=== PATIENT | female | born 1940 | race Caucasian/White ===

== ENCOUNTER → 2016-11-13 | Outpatient (CLI) | payer OTHER | LOC: FIMAGING 06:45 | PROVIDERS: ATTEND Orthopaedic Surgery | DX: S43.401A Unspecified sprain of right shoulder joint, initial encounter (principal); M75.81 Other shoulder lesions, right shoulder; M19.011 Primary osteoarthritis, right shoulder ==

== ENCOUNTER → 2017-01-16 | Outpatient (CLI) | payer OTHER | LOC: FIMAGING 09:41 | PROVIDERS: ATTEND Obstetrics & Gynecology Gynecology | DX: Z12.31 Encounter for screening mammogram for malignant neoplasm of breast (principal) | CPT/HCPCS: G0202 ==

== ENCOUNTER → 2017-05-27 | Outpatient (CLI) | payer OTHER | LOC: FIMAGING 09:55 | PROVIDERS: ATTEND Family Medicine | DX: M54.16 Radiculopathy, lumbar region (principal); M48.56XA Collapsed vertebra, not elsewhere classified, lumbar region, initial encounter for fracture; M48.061 Spinal stenosis, lumbar region without neurogenic claudication; M48.07 Spinal stenosis, lumbosacral region; R93.422 Abnormal radiologic findings on diagnostic imaging of left kidney ==

== ENCOUNTER → 2017-05-30 | Outpatient (CLI) | payer OTHER | LOC: FIMAGING 11:10 | PROVIDERS: ATTEND Family Medicine | DX: K76.0 Fatty (change of) liver, not elsewhere classified (principal); K76.89 Other specified diseases of liver; N28.1 Cyst of kidney, acquired; K86.89 Other specified diseases of pancreas ==

== ENCOUNTER → 2017-05-31 | Outpatient (CLI) | payer OTHER | LOC: FIMAGING 10:52 | PROVIDERS: ATTEND Family Medicine | DX: M25.562 Pain in left knee (principal); M23.262 Derangement of other lateral meniscus due to old tear or injury, left knee; M22.42 Chondromalacia patellae, left knee; M25.462 Effusion, left knee ==

== ENCOUNTER 2018-05-26 17:56 | Emergency (ER) | payer OTHER ==
[2018-05-26 18:05] VITALS: BP 207/106
[2018-05-26] MEDS ORDERED: LORazepam 1 MG TAB PO ONE (18:22)
--- NOTE | 2018-05-26 18:31 | EDPHY ---
H & P Stated Complaint: s/p eye surgery ecchymosis Time Seen by Provider: 05/26/18 18:23 HPI/ROS: CHIEF COMPLAINT: Black eye HISTORY OF PRESENT ILLNESS: Patient is a 77-year-old female who comes to the emergency department complaining of bilateral black eyes after eye surgery today. She had surgery to reposition the extraocular muscles. She became alarmed about the bruising around her eyes and swelling in her eyelids. Her vision is intact. Her extraocular rojas all seem to be functioning well. No pain with eye movement. Normal vision. Severity: Moderate Modifying factors: None REVIEW OF SYSTEMS: Constitutional: denies: chills, fever, recent illness, recent injury EENTM: See HPI Respiratory: denies: cough, shortness of breath Cardiac: denies: chest pain, irregular heart rate, lightheadedness, palpitations Gastrointestinal/Abdominal: denies: abdominal pain, diarrhea, nausea, vomiting, blood streaked stools Genitourinary: denies: dysuria, frequency, hematuria, pain Musculoskeletal: denies: joint pain, muscle pain Skin: denies: lesions, rash, jaundice, bruising Neurological: denies: headache, numbness, paresthesia, tingling, dizziness, weakness Hematologic/Lymphatic: denies: blood clots, easy bleeding, easy bruising Immunologic/allergic: denies: HIV/AIDS, transplant 10 systems reviewed and negative except as noted EXAM: GENERAL: Well-appearing, well-nourished and in no acute distress. HEAD: Atraumatic, normocephalic. EYES: Bruising around eyes right greater than left, swelling to eye lid right greater than left, Pupils equal round and reactive to light, extraocular movements intact, sclera anicteric, conjunctiva are normal. No proptosis. ENT: TMs normal, nares patent, oropharynx clear without exudates. Moist mucous membranes. NECK: Normal range of motion, supple without lymphadenopathy or JVD. LUNGS: Breath sounds clear to auscultation bilaterally and equal. No wheezes rales or rhonchi. HEART: Regular rate and rhythm without murmurs, rubs or gallops. ABDOMEN: Soft, nontender, normoactive bowel sounds. No guarding, no rebound. No masses appreciated. BACK: No CVA tenderness, no spinal tenderness, step-offs or deformities EXTREMITIES: Normal range of motion, no pitting or edema. No clubbing or cyanosis. NEUROLOGICAL: Cranial nerves II through XII grossly intact. Normal speech, normal gait. 5/5 strength, normal movement in all extremities, normal sensation , normal reflexes PSYCH: Normal mood, normal affect. SKIN: Warm, dry, normal turgor, no visible rashes or lesions. Source: Patient, Family Exam Limitations: No limitations - Personal History Current Tetanus/Diphtheria Vaccine: Yes Current Tetanus Diphtheria and Acellular Pertussis (TDAP): Yes - Medical/Surgical History Hx Asthma: No Hx Chronic Respiratory Disease: No Hx Diabetes: No Hx Cardiac Disease: No Hx Renal Disease: Yes Hx Cirrhosis: No Hx Alcoholism: No Hx HIV/AIDS: No Hx Splenectomy or Spleen Trauma: No Other PMH: spinal compression fx, shingles, GERD, Lung CA - Family History Significant Family History: No pertinent family hx - Social History Smoking Status: Former smoker Alcohol Use: Sober Constitutional: Initial Vital Signs Temperature (C) 37.2 C 05/26/18 18:01 Heart Rate 108 H 05/26/18 18:01 Respiratory Rate 16 05/26/18 18:01 Blood Pressure 207/106 H 05/26/18 18:01 O2 Sat (%) 94 05/26/18 18:01 O2 Delivery Mode Room Air Allergies/Adverse Reactions: Penicillins Allergy (Intermediate, Verified 05/26/18 18:01) Rash codeine Allergy (Verified 05/26/18 18:01) soy Allergy (Verified 05/26/18 18:01) Home Medications: Medication Instructions Recorded Estrogen,Con/M-Progest Acet 1 each PO 12/22/11 [Premphase 0.625-5 mg Tablet] Progesterone 12/22/11 Zolpidem Tartrate [Ambien (RX)] 5 mg PO HSPRN PRN 12/22/11 oxyCODONE/APAP 5/325 [Percocet 1 tab PO Q4-6PRN PRN 03/28/13 5/325 (RX)] Famotidine [Pepcid 20 MG (OTC)] 40 mg PO DAILY #10 tab 01/09/16 Acyclovir 05/26/18 Medical Decision Making ED Course/Re-evaluation: The patient does not have any proptosis or vision changes or trouble with extraocular movement. She does not have pain. She is concerned mostly about the bruising and swelling of her eyelids. We discussed that this is normal after her surgery. It will likely be worse tomorrow than it is today. Her surgery was this morning. I recommended ice and incline position. She is happy with this and declines further workup or testing is eager to go home. Differential Diagnosis: Partial list of the Differential diagnosis considered include but were not limited to; contusion, edema and although unlikely based on the history and physical exam, I also considered retrobulbar hemorrhage, infection, glaucoma, retinal nerve injury, corneal abrasion, foreign body. I discussed these differential diagnoses and the plan with the patient as well as the usual and expected course. The patient understands that the diagnosis is provisional and that in medicine we are not always correct and that further workup is often warranted. Usual and customary warnings were given. All of the patient's questions were answered. The patient was instructed to return to the emergency department should the symptoms at all worsen or return, otherwise to followup with the physician as we discussed. - Data Points Medications Given: Discontinued Medications Lorazepam (Ativan) 1 mg PO EDNOW ONE Stop: 05/26/18 18:23 Last Admin: 05/26/18 18:25 Dose: 1 mg Departure - Departure Disposition: Home, Routine, Self-Care Clinical Impression: Contusion Qualifiers: Encounter type: initial encounter Contusion area: head Contusion of head detail : eyelid Laterality: unspecified laterality Qualified Code(s): S00.10XA - Contusion of unspecified eyelid and periocular area, initial encounter Condition: Fair Instructions: Black Eye (ED) Referrals: Tomy Mock MD [Primary Care Provider] - As per Instructions
== END 2018-05-26 18:40 | disposition home or self-care (01) ==
DX: S00.11XA Contusion of right eyelid and periocular area, initial encounter (principal); S00.12XA Contusion of left eyelid and periocular area, initial encounter; Z98.890 Other specified postprocedural states; Z87.891 Personal history of nicotine dependence

== ENCOUNTER → 2018-07-01 | Outpatient (CLI) | payer OTHER | LOC: FIMAGING 07:39 | PROVIDERS: ATTEND Orthopaedic Surgery | DX: M17.12 Unilateral primary osteoarthritis, left knee (principal) ==

== ENCOUNTER 2018-09-11 09:07 | Inpatient (IN) | payer OTHER ==
--- NOTE | 2018-09-11 06:27 | PDHPUP ---
History & Physical Update H&P update statement: This history and physical update is based on an assessment of the patient which was completed after admission or registration (within 24 hours), but prior to the surgery/procedure. H&P update: H&P reviewed & patient examined, no change in patient's condition since H&P completed
[~2018-09-11 09:07] MED LIST: ROPIVACAINE 0.2% 80 MG, EPINEPHrine 0.2 MG, KETOROLAC TROMETHAMINE 30 MG in SYRINGE 0 ML IU ONE; TRANEXAMIC ACID 3,000 MG in NS (SYRINGE) 50 ML IRR ONE
[2018-09-11] MEDS ORDERED: TRANEXAMIC ACID 3,000 MG/50 ML BAG IRR ONE (09:27)
[2018-09-11] MEDS ORDERED: ACETAMINOPHEN 325 MG TAB PO ONE (09:40)
[2018-09-11] MEDS ORDERED: ceFAZolin 2 GM/DEXTROSE 100 ML IV ONE (09:40)
[2018-09-11] MEDS ORDERED: DEXAMETHASONE 4 MG/ML VIAL IVP ONE (09:40)
[2018-09-11] MEDS ORDERED: FAMOTIDINE 20 MG TAB PO ONE (09:40)
--- NOTE | 2018-09-11 09:53 | PDANEPAE ---
ANE Past Medical History - Cardiovascular History Hx Hypertension: No Hx Arrhythmias: No Hx Chest Pain: No Hx Coronary Artery / Peripheral Vascular Disease: No Hx CHF / Valvular Disease: No Hx Palpitations: No Cardiovascular History Comment: EXTRASYSTOLES NONORGANIC. (PER PT STRESS INDUCED). HTN (PER PT STRESS RELATED). NO CARDIAC MEDS - Pulmonary History Hx COPD: No Hx Asthma/Reactive Airway Disease: No Hx Recent Upper Respiratory Infection: No Hx Oxygen in Use at Home: No Hx Sleep Apnea: No Sleep Apnea Screening Result - Last Documented: Negative Pulmonary History Comment: LUNG CA 1993 - Neurologic History Hx Cerebrovascular Accident: No Hx Seizures: No Hx Dementia: No Neurologic History Comment: occular migraines. POST HERPETIC NEURALGIA, HX SHINGLES 2012 - Endocrine History Hx Diabetes: No Hypothyroid: No Hyperthyroid: No Obesity: no - Renal History Hx Renal Disorders: Yes Renal History Comment: 1 working kidney. FREQUENT UTI. URGENCY OF URINATION - Liver History Hx Hepatic Disorders: No - Neurological & Psychiatric Hx Hx Neurological and Psychiatric Disorders: Yes Neurological / Psychiatric History Comment: ANXIETY. INSOMNIA - Cancer History Hx Cancer: Yes Cancer History Comment: LUNG CA 1993 - Congenital Disorder History Hx Congenital Disorders: No - GI History GERD: no Hx Gastrointestinal Disorders: Yes Gastrointestinal History Comment: GERD. POLYPS - Other Health History Other Health History: OSTEOARTHRITIS. BRUISES EASILY - Chronic Pain History Chronic Pain: Yes (HEAD, SHINGLES) - Surgical History Prior Surgeries: left knee scope. 2008 BRINA FUNDOPLICATION (GERD). APPENDECTOMY. 1993 R LOBE LUNG REMOVED (ENDOCARCINOMA). FACE LIFT ANE Review of Systems Review of Systems: - Exercise capacity Exercise capacity: >=4 METS, limited by disability METS (RN): 4 METS ANE Patient History - Allergies Allergies/Adverse Reactions: Penicillins Allergy (Unknown, Verified 08/28/18 15:25) Rash - Home Medications Home Medications: Zolpidem Tartrate [Ambien (RX)] 5 mg PO HS 12/22/11 [Last Taken Unknown] Acyclovir [Zovirax 200 mg (*)] 200 mg PO DAILY 05/26/18 [Last Taken Unknown] Estrogens, Conjugated [Premarin] 0.45 mg PO DAILY 08/28/18 [Last Taken Unknown] Famotidine [Pepcid 20 MG (OTC)] 40 mg PO BID 08/28/18 [Last Taken Unknown] Herbals/Supplements -Info Only 1 ea PO DAILY 08/28/18 [Last Taken Unknown] Lisinopril [Zestril 5 mg (*)] 5 mg PO DAILY 08/28/18 [Last Taken Unknown] Progesterone, Micronized [Progesterone] 100 mg PO HS 08/28/18 [Last Taken Unknown] oxyCODONE IR [Oxycodone Ir (*)] 5 mg PO Q4HRS PRN 09/02/18 [Last Taken Unknown] - Anes Hx Anes Hx: no prior problems - Smoking Hx Smoking Status: Former smoker Marijuana use: No - Alcohol Use Alcohol Use: Occasionally - Family Anes Hx Family Anes Hx: neg - N/A Family Hx Anesthesia Complications: NONE ANE Labs/Vital Signs - Vital Signs Height: 162.56 cm Weight: 66.678 kg ANE Physical Exam - Airway Neck exam: FROM Mallampati Score: Class 2 Mouth exam: normal dental/mouth exam - Pulmonary Pulmonary: no respiratory distress, no rales or rhonchi, clear to auscultation - Cardiovascular Cardiovascular: regular rate and rhythym, no murmur, rub, or gallop - ASA Status ASA Status: II ANE Anesthesia Plan Anesthesia Plan: MAC, spinal Regional Anesthesia: adductor canal FNB Total IV Anesthesia: No
[2018-09-11] MEDS ORDERED: fentaNYL 100 MCG/2 ML INJ ONE (10:23)
[2018-09-11] MEDS ORDERED: PROPOFOL/EMULSION 500 MG/50 ML BOTTLE IV ONE (10:23)
[2018-09-11] MEDS ORDERED: MIDAZOLAM 2 MG/2 ML VIAL IVP ONE (10:32)
[2018-09-11] MEDS ORDERED: NALOXONE HCL 0.4 MG/ML INJ IVP PRN (11:41)
[2018-09-11] MEDS ORDERED: HYDROCODONE/APAP 5/325 TAB PO PRN (11:41)
[2018-09-11] MEDS ORDERED: oxyCODONE IR 5 MG TAB PO PRN (11:41)
[2018-09-11] MEDS ORDERED: ONDANSETRON 4 MG/2 ML VIAL IVP PRN ×2 (11:41→11:56)
[2018-09-11] MEDS ORDERED: PHENYLEPHRINE HCL 100 MCG/ML SYR IVP PRN (11:41)
[2018-09-11] MEDS ORDERED: fentaNYL 100 MCG/2 ML INJ IVP PRN (11:41)
[2018-09-11] MEDS ORDERED: LR 500 ML IV PRN (11:41)
[2018-09-11] MEDS ORDERED: ACETAMINOPHEN 500 MG TAB PO PRN (11:41)
[2018-09-11] MEDS ORDERED: MAGNESIUM HYDROXIDE 30 ML UDCUP PO PRN (11:56)
[2018-09-11] MEDS ORDERED: PROMETHAZINE HCL 25 MG/ML INJ IVP PRN (11:56)
[2018-09-11] MEDS ORDERED: CYCLOBENZAPRINE 10 MG TAB PO PRN (11:56)
[2018-09-11] MEDS ORDERED: LACTULOSE 20 GM/30 ML UDCUP PO PRN (11:56)
[2018-09-11] MEDS ORDERED: METOCLOPRAMIDE 10 MG/2 ML VIAL IVP PRN (11:56)
[2018-09-11] MEDS ORDERED: ONDANSETRON DISINTEGRATING 4 MG TAB PO PRN (11:56)
[2018-09-11] MEDS ORDERED: POLYETHYLENE GLYCOL 3350 17 GM PKT PO PRN (11:56)
[2018-09-11] MEDS ORDERED: TEMAZEPAM 15 MG CAP PO PRN (11:56)
[2018-09-11] MEDS ORDERED: BISACODYL 10 MG SUPP PR PRN (11:56)
[2018-09-11] MEDS ORDERED: DIPHENOXYLATE/ATROPINE LOMOTIL 1 TAB PO PRN (11:56)
[2018-09-11] MEDS ORDERED: PROMETHAZINE HCL 25 MG SUPPR PR PRN (11:56)
[2018-09-11] MEDS ORDERED: diphenhydrAMINE 25 MG CAP PO PRN (11:56)
[2018-09-11] MEDS ORDERED: PHENYLEPHRINE HCL 100 MCG/ML SYR ONE (11:59)
[2018-09-11] MEDS ORDERED: LR 1,000 ML IV SCH (12:00)
[2018-09-11] MEDS ORDERED: ROPIVACAINE HCL 100 MG/20 ML INJ ONE (12:04)
--- NOTE | 2018-09-11 12:44 | POSTOPPROG ---
Post Op Note Date of Operation: 09/11/18 Surgeon: Rj Rodriguez [employer] Spreading Machine Operator: Radames Lara Anesthesiologist: King Anesthesia: Spinal Pre-op Diagnosis: L knee DJD Post-op Diagnosis: same Indication: pain Procedure: L TKA Findings: DJD knee Inf/Abcess present in the surg proc area at time of surgery?: No EBL: 50-100
--- NOTE | 2018-09-11 13:17 | PDMN ---
Medical Necessity Medical necessity: [facility] S700 Knee Arthroplasty, Total: 77 yo s/p L TKA. IP status for pain management, advanced age, GERD, anxiety. Per anesthesiology: Hx extrasystoles and HTN w/ stress, remote lung CA w/ R lobectomy, 1 working kidney, frequent UTIs.
--- NOTE | 2018-09-11 14:13 | POSTANESTH ---
Post Anesthetic Evaluation Cardiovascular Status: Similar to Pre-Op Cond Respiratory Status: Normal, Stable Level of Consciousness/Mental Status: Can Participate in Eval Pain Control: Adequate, Prn Tx Ordered Nausea/Vomiting Control: Adequate, Prn Tx Ordered Complications Possibly Related to Anesthesia: None Noted
[2018-09-11] MEDS ORDERED: ACETAMINOPHEN 500 MG TAB ONE (14:53)
[2018-09-11] MEDS: ACETAMINOPHEN 325 MG TAB PO SCH ×3 (16:23→23:34)
[2018-09-11] MEDS: oxyCODONE IR 5 MG TAB PO PRN ×2 (17:03→21:22)
[2018-09-11] MEDS: ceFAZolin 2 GM/DEXTROSE 100 ML IV SCH (20:05)
[2018-09-11] MEDS: SENNOSIDES/DOCUSATE SODIUM TAB PO SCH (20:10)
[2018-09-11] MEDS: ASPIRIN 81 MG CHEWABLE TAB PO SCH (20:10)
[2018-09-11] MEDS: FAMOTIDINE 20 MG TAB PO SCH (20:24)
[2018-09-12] MEDS: ceFAZolin 2 GM/DEXTROSE 100 ML IV SCH (02:44)
[2018-09-12] MEDS: oxyCODONE IR 5 MG TAB PO PRN ×4 (02:46→11:51)
[2018-09-12] MEDS: ACETAMINOPHEN 325 MG TAB PO SCH ×2 (06:23→11:51)
[2018-09-12] MEDS: FAMOTIDINE 20 MG TAB PO SCH (06:26)
[2018-09-12] MEDS: ASPIRIN 81 MG CHEWABLE TAB PO SCH (08:03)
[2018-09-12] MEDS: SENNOSIDES/DOCUSATE SODIUM TAB PO SCH (08:03)
[2018-09-12 08:07] VITALS: BP 159/84
[2018-09-12] MEDS ORDERED: LISINOPRIL 5 MG TAB PO SCH (09:00)
[2018-09-12] MEDS ORDERED: ACYCLOVIR 200 MG CAP PO SCH (09:00)
--- NOTE | 2018-09-12 10:50 | SOAPPROG ---
SOAP Progress Note Assessment/Plan: Assessment: Patient is doing well POD 1 s/p LTKA Pain management: pain is well controlled on oral pain meds. VTE ppx: recommend 81 mg aspirin morning and evening for 4 weeks, cont AMOL and SCDs Anemia: level is expected initially postop. Asymptomatic. Continue to monitor D/c planning:patient has done much better than anticipated. Patient is stable, BP stable, pain well controlled and patient is eager for discharge to home. May d/c to home today pending release from PT Plan: 09/12/18 10:49 Subjective: no nausea, vomiting, chest pain, or shortness of breath. Pain well controlled Objective: Vital Signs Temp Pulse Resp BP Pulse Ox 36.7 C 97 14 159/84 H 94 09/12/18 08:00 09/12/18 08:00 09/12/18 08:00 09/12/18 08:05 09/12/18 08:00 Laboratory Results 09/12/18 06:30 09/12/18 06:30 09/11/18 09/12/18 09/13/18 05:59 05:59 05:59 Intake Total 2220 Output Total 380 Balance 1840 LLE: incision dressing clean and dry, NVI, positive PF/DF ICD10 Worksheet Patient Problems: Problems Problem Status Onset Primary localized osteoarthritis of left knee Acute
--- NOTE | 2018-09-12 21:17 | GOP ---
DATE OF OPERATION: 09/11/2018 SURGEON: Sharifa Rodriguez MD PACKAGING TECHNICIAN: LAIM Chester ANESTHESIA: Spinal. PREOPERATIVE DIAGNOSIS: Left knee osteoarthritis. POSTOPERATIVE DIAGNOSIS: Left knee osteoarthritis. PROCEDURE PERFORMED: Left total knee arthroplasty with computer navigation, robotic assist. FINDINGS: ESTIMATED BLOOD LOSS: 30 cc. INDICATIONS: The patient is a 77-year-old female with severe and progressive pain and deformity of the left knee unresponsive to conservative care. The risks and benefits of surgical intervention were explained in detail. DESCRIPTION OF PROCEDURE: The patient was brought to the operative room and placed on the table in the supine position. Spinal anesthesia was induced without difficulty. A pneumatic tourniquet was applied about the left proximal thigh, and the leg was prepped and draped in a sterile fashion. The leg miranda was applied. After exsanguination by elevation the tourniquet was inflated to 250 mmHg. Incision was made anterior medial from the tibial tuberosity to a point 2 cm proximal to the superior pole of the patella. Medial parapatellar arthrotomy was carried out from the superior pole of the patella and posteriorly in line with the fibers of the Type II VMO. The medial collateral ligament was elevated and the infrapatellar fat pad was resected. The patella was everted and the articular surface was excised. A 32 mm patellar button was placed. Attention was turned first to the distal aspect of the femur. After exposure of the femur, 2 half pins were placed for fixation of the femoral array. In a similar fashion, 2 pins were placed anteromedial on the tibia for fixation of the tibial array. External land marking and registration of the hip center was performed without difficulty. Internal femoral and tibial registration was carried out without difficulty and the femoral and tibial checkpoints were placed and verified for accuracy. Attention was turned to the femur. The foot print for the size 3 femoral component was cut with the saw using the [employer]It robotic system and verified for accuracy against the CT based plan. In a similar fashion, the saw was used to cut the footprint for the size 3 tibial component using the [employer]It system and verified for accuracy against the CT based plan. The tibial articular surface was excised without difficulty, followed by the intercondylar box cut. The knee was extended and the remnants of the medial and lateral meniscus were excised. The posterior capsule was injected with ropivacaine, epinephrine and Toradol. A size 3 tibial tray was positioned. Trial reduction was then carried out. There was excellent range of motion, alignment, and stability using the 3 x 9 mm polyethylene. All trials were then removed. The joint was thoroughly irrigated and carefully dried. The press-fit components were implanted. The permanent 3 x 9 mm polyethylene was placed without difficulty. The tourniquet was deflated and all bleeders were coagulated. The wound was thoroughly irrigated and closed using interrupted sutures of 2-0 Vicryl for the joint capsule. The subcu was closed with 3-0 Vicryl and the skin with 4-0 Monocryl. Dermabond and Steri-Strips were applied followed by a compressive dressing. The patient was then moved from the operating room to the recovery room in good condition, having tolerated the procedure well. PATHOLOGY: Severe lateral and patellofemoral osteoarthritis. /[id number]/MODL MTDD
--- NOTE | 2018-09-15 10:21 | GDS ---
[f rep st] DISCHARGE SUMMARY ADMISSION DIAGNOSIS: Left knee osteoarthritis. DISCHARGE DIAGNOSIS: Left knee osteoarthritis. PROCEDURE: Left total knee arthroplasty, robot assisted. VTE PROPHYLAXIS: Recommend aspirin 81 mg twice daily for 4 weeks. BRIEF DESCRIPTION OF HOSPITAL STAY: Patient was admitted for an elective joint arthroplasty. The pa lora tolerated the procedure well and has passed physical therapy. The patient was given appropriat e antibiotic prophylaxis and venous thromboembolism prophylaxis. The patient's pain was well control led on oral pain medication, patient was holding down food, and had urinated. Decision was made to d ischarge the patient. The patient was given post-operative prescriptions pre-operatively. PLAN: Followup scheduled with Dr. Rodriguez's office on 09/29/2018 at 10:15. /[id number]/MODL
== END 2018-09-12 12:07 | disposition home or self-care (01) | DRG 470 ==
LOC: F3N 09:07
PROVIDERS: ADMIT Orthopaedic Surgery; ATTEND Orthopaedic Surgery
DX: M17.12 Unilateral primary osteoarthritis, left knee (principal); K21.9 Gastro-esophageal reflux disease without esophagitis; G43.909 Migraine, unspecified, not intractable, without status migrainosus; M81.0 Age-related osteoporosis without current pathological fracture; F41.9 Anxiety disorder, unspecified; Z85.118 Personal history of other malignant neoplasm of bronchus and lung; R39.15 Urgency of urination; G47.00 Insomnia, unspecified; G89.29 Other chronic pain; Z88.0 Allergy status to penicillin
CPT/HCPCS: 97110-GP; 97161-GP; J0171; J0690; J1100; J1885; J2250; J2370; J2704; J2795; J3010

== ENCOUNTER → 2018-11-09 | Outpatient (CLI) | payer OTHER | LOC: FIMAGING 09:19 | PROVIDERS: ATTEND Obstetrics & Gynecology Gynecology | DX: Z12.31 Encounter for screening mammogram for malignant neoplasm of breast (principal) ==